=== PATIENT | male | born 1965 | race Caucasian/White ===

== ENCOUNTER 2019-05-31 08:09 | Emergency (ER) | payer OTHER ==
[~2019-05-31] VITALS: Ht 185.4 cm; Wt 111.1 kg
[2019-05-31] MEDS ORDERED: KEFLEX500 M1 PO (08:35)
[2019-05-31 09:40] VITALS: BP 155/95
== END 2019-05-31 09:40 | disposition home or self-care (01) ==
LOC: M.ERS 08:09
DX: S61.211A Laceration without foreign body of left index finger without damage to nail, initial encounter (principal); J44.9 Chronic obstructive pulmonary disease, unspecified; G47.30 Sleep apnea, unspecified; Z90.49 Acquired absence of other specified parts of digestive tract; W26.8XXA Contact with other sharp object(s), not elsewhere classified, initial encounter; Y93.89 Activity, other specified; Y92.89 Other specified places as the place of occurrence of the external cause; Y99.8 Other external cause status